=== PATIENT | male | born 1990 | race African-American/Black ===

== ENCOUNTER 2018-11-07 13:42 | Emergency (ER) | payer OTHER ==
[2018-11-07 15:24] LABS: Absolute Lymphocytes (CBC) 1.8 K/uL (0.7-4.9); Absolute Monocytes 0.7 K/uL (0.1-1.3); Absolute Neutrophil 3.9 K/uL (1.8-8.0); Basophils % 0.3 % (0-1.3); Eosinophils % 0.9 % (0-4.4); Hematocrit 42.3 % (39.6-49.0); Lymphocytes % 27.5 % (15.3-44.8); MPV 7.8 fL (7.6-11.3); Monocytes % 10.5 % (3.3-12.3); RBC Red Blood Cell Count 4.74 M/uL (4.33-5.43)
[2018-11-07 15:39] LABS: BUN Blood Urea Nitrogen 10 mg/dL (7-18); Bicarbonate 31 mmol/L (21-32); Glucose Level 95 mg/dL (74-106); Potassium 3.5 mmol/L (3.5-5.1); Sodium Level 142 mmol/L (136-145); Troponin (Emerg Dept Use Only) < 0.02 ng/mL (0.0-0.045)
--- NOTE | 2018-11-07 16:36 | ER ---
Nurse's Notes [facility] Name: Simeon Perez Age: 28 yrs Sex: Male : 1990 Arrival Date: 11/07/2018 Time: 13:43 Bed 17 Private MD: Diagnosis: Chest pain, unspecified;Functional dyspepsia Presentation: 11/07 13:49 Presenting complaint: Patient states: sent by [facility], pt went to see them for sv stomach burning and they sent him here to have the MD look over the EKG. Transition of care: patient was not received from another setting of care. Onset of symptoms was November 07, 2018. Initial Sepsis Screen: Does the patient meet any 2 criteria? No. Patient's initial sepsis screen is negative. Does the patient have a suspected source of infection? No. Patient's initial sepsis screen is negative. Care prior to arrival: None. 13:49 Method Of Arrival: Ambulatory sv 13:49 Acuity: CINTHYA 3 sv 14:15 Risk Assessment: Do you want to hurt yourself or someone else? Patient reports no em desire to harm self or others. Historical: - Allergies: 13:51 No Known Allergies; sv - PMHx: 13:51 None; sv - PSHx: 13:51 None; sv - Immunization history:: Adult Immunizations up to date. - Social history:: Smoking status: Patient/guardian denies using tobacco, Patient/guardian denies using alcohol, street drugs, IV drugs. - Ebola Screening: : No symptoms or risks identified at this time. Screenin:15 Abuse screen: Denies threats or abuse. Nutritional screening: No deficits noted. em Tuberculosis screening: No symptoms or risk factors identified. Fall Risk None identified. Assessment: 14:15 General: Appears in no apparent distress. comfortable, Behavior is calm, cooperative, em Denies fever. Pain: Complains of pain in chest Pain currently is 0 out of 10 on a pain scale. Quality of pain is described as burning, Pain began 1 day ago. Is intermittent. Neuro: Level of Consciousness is awake, alert, obeys commands, Oriented to person, place, time, situation. Cardiovascular: Heart tones S1 S2 present Capillary refill < 3 seconds Patient's skin is warm and dry. Rhythm is sinus bradycardia. Respiratory: Airway is patent Respiratory effort is even, unlabored, Respiratory pattern is regular, symmetrical, Breath sounds are clear bilaterally. Denies cough. GI: Abdomen is flat, Patient currently denies nausea, vomiting. Derm: Skin is intact, is healthy with good turgor, Skin is pink, warm \T\ dry. Musculoskeletal: Capillary refill < 3 seconds, Range of motion: intact in all extremities. 15:00 Reassessment: Patient appears in no apparent distress at this time. Patient and/or em family updated on plan of care and expected duration. Pain level reassessed. Patient is alert, oriented x 3, equal unlabored respirations, skin warm/dry/pink. Patient denies pain at this time. Patient states feeling better. Patient states symptoms have improved. 16:00 Reassessment: Patient appears in no apparent distress at this time. Patient and/or em family updated on plan of care and expected duration. Pain level reassessed. Patient is alert, oriented x 3, equal unlabored respirations, skin warm/dry/pink. Patient denies pain at this time. 16:57 Reassessment: Patient appears in no apparent distress at this time. Patient and/or em family updated on plan of care and expected duration. Pain level reassessed. Patient is alert, oriented x 3, equal unlabored respirations, skin warm/dry/pink. Patient denies pain at this time. Patient states feeling better. Patient states symptoms have improved. Vital Signs: 13:51 BP 114 / 67; Pulse 67; Resp 16; Pulse Ox 97% ; Weight 52.62 kg; Height 5 ft. 7 in. sv (170.18 cm); Pain 0/10; 14:38 BP 117 / 69; Pulse 69; Resp 13; Temp 98.3(O); Pulse Ox 99% on R/A; mh5 15:30 BP 111 / 65; Pulse 56; Resp 18; Temp 98.5(O); Pulse Ox 98% on R/A; mh5 16:58 BP 114 / 60; Pulse 57; Resp 18; Pulse Ox 99% on R/A; Pain 0/10; em 13:51 Body Mass Index 18.17 (52.62 kg, 170.18 cm) sv ED Course: 13:43 Patient arrived in ED. as 13:48 Rigoberto Maldonado MD is Attending Physician. kdr 13:50 Triage completed. sv 13:51 Arm band placed on. sv 14:15 Armen Millard LVN is Primary Nurse. em 14:15 Patient has correct armband on for positive identification. Bed in low position. Call em light in reach. Adult w/ patient. manager proposal on. Pulse ox on. NIBP on. 14:15 EKG done, by ED staff, reviewed by Rigoberto Maldonado MD. [facility] 16:58 No provider procedures requiring assistance completed. Patient did not have IV access em during this emergency room visit. Administered Medications: No medications were administered Outcome: 16:35 Discharge ordered by . kdr 16:58 Discharged to home ambulatory. em 16:58 Condition: good 16:58 Discharge instructions given to patient, Instructed on discharge instructions, follow up and referral plans. medication usage, Demonstrated understanding of instructions, follow-up care, medications, Prescriptions given X 1. 16:59 Patient left the ED. em Signatures: Maribel Jackson RN RN Rigoberto Benedict MD MD kdr Munoz, Edgar, LVN MATERIAL YARD CLERK Courtney Quintero [facility]
--- NOTE | 2018-11-07 16:36 | EDPHYS ---
Physician Documentation [facility] Name: Simeon Perez Age: 28 yrs Sex: Male : 1990 Arrival Date: 11/07/2018 Time: 13:43 Bed 17 Private MD: ED Physician Rigoberto Maldonado HPI: 11/07 15:45 This 28 yrs old Black Male presents to ER via Ambulatory with complaints of Abnormal kdr EKG. 15:45 The patient or guardian reports chest pain that is located primarily in the substernal kdr area, epigastric area. The pain does not radiate. Associated signs and symptoms: Pertinent positives: None. Pertinent negatives: abdominal pain, cough, diaphoresis, dizziness, lightheadedness, nausea, near syncope, palpitations, recent travel, shortness of breath. The chest pain is described as burning. Duration: The patient or guardian reports multiple episodes, that are intermittent, that wax and wane, with no pattern. Modifying factors: The symptoms are alleviated by nothing. the symptoms are aggravated by Worse with carbonated beverages. Severity of pain: At its worst the pain was moderate in the emergency department the pain has resolved. The patient has not experienced similar symptoms in the past. Sent from urgent care after "abnormal " EKG. Historical: - Allergies: 13:51 No Known Allergies; sv - PMHx: 13:51 None; sv - PSHx: 13:51 None; sv - Immunization history:: Adult Immunizations up to date. - Social history:: Smoking status: Patient/guardian denies using tobacco, Patient/guardian denies using alcohol, street drugs, IV drugs. - Ebola Screening: : No symptoms or risks identified at this time. ROS: 15:45 Constitutional: Negative for fever, chills, and weight loss, Eyes: Negative for injury, kdr pain, redness, and discharge, ENT: Negative for injury, pain, and discharge, Neck: Negative for injury, pain, and swelling, Respiratory: Negative for shortness of breath, cough, wheezing, and pleuritic chest pain, Abdomen/GI: Negative for abdominal pain, nausea, vomiting, diarrhea, and constipation, Back: Negative for injury and pain, : Negative for injury, bleeding, discharge, and swelling, MS/Extremity: Negative for injury and deformity, Skin: Negative for injury, rash, and discoloration, Neuro: Negative for headache, weakness, numbness, tingling, and seizure activity. Psych: Negative for depression, anxiety, suicide ideation, homicidal ideation, and hallucinations, Allergy/Immunology: Negative for hives, rash, and allergies, Endocrine: Negative for neck swelling, polydipsia, polyuria, polyphagia, and marked weight changes, Hematologic/Lymphatic: Negative for swollen nodes, abnormal bleeding, and unusual bruising. 15:45 Cardiovascular: Positive for chest pain, Negative for edema, orthopnea, palpitations, paroxysmal nocturnal dyspnea, acute changes. Exam: 15:45 Constitutional: This is a well developed, well nourished patient who is awake, alert, kdr and in no acute distress. Head/Face: Normocephalic, atraumatic. Eyes: Pupils equal round and reactive to light, extra-ocular motions intact. Lids and lashes normal. Conjunctiva and sclera are non-icteric and not injected. Cornea within normal limits. Periorbital areas with no swelling, redness, or edema. Neck: Trachea midline, no thyromegaly or masses palpated, and no cervical lymphadenopathy. Supple, full range of motion without nuchal rigidity, or vertebral point tenderness. No Meningismus. Chest/axilla: Normal chest wall appearance and motion. Nontender with no deformity. No lesions are appreciated. Cardiovascular: Regular rate and rhythm with a normal S1 and S2. No gallops, murmurs, or rubs. Normal PMI, no JVD. No pulse deficits. Respiratory: Lungs have equal breath sounds bilaterally, clear to auscultation and percussion. No rales, rhonchi or wheezes noted. No increased work of breathing, no retractions or nasal flaring. Abdomen/GI: Soft, non-tender, with normal bowel sounds. No distension or tympany. No guarding or rebound. No evidence of tenderness throughout. Back: No spinal tenderness. No costovertebral tenderness. Full range of motion. Skin: Warm, dry with normal turgor. Normal color with no rashes, no lesions, and no evidence of cellulitis. MS/ Extremity: Pulses equal, no cyanosis. Neurovascular intact. Full, normal range of motion. Neuro: Awake and alert, GCS 15, oriented to person, place, time, and situation. Cranial nerves II-XII grossly intact. Motor strength 5/5 in all extremities. Sensory grossly intact. Cerebellar exam normal. Normal gait. Psych: Awake, alert, with orientation to person, place and time. Behavior, mood, and affect are within normal limits. Vital Signs: 13:51 BP 114 / 67; Pulse 67; Resp 16; Pulse Ox 97% ; Weight 52.62 kg; Height 5 ft. 7 in. sv (170.18 cm); Pain 0/10; 14:38 BP 117 / 69; Pulse 69; Resp 13; Temp 98.3(O); Pulse Ox 99% on R/A; mh5 15:30 BP 111 / 65; Pulse 56; Resp 18; Temp 98.5(O); Pulse Ox 98% on R/A; mh5 16:58 BP 114 / 60; Pulse 57; Resp 18; Pulse Ox 99% on R/A; Pain 0/10; em 13:51 Body Mass Index 18.17 (52.62 kg, 170.18 cm) sv MDM: 15:45 Data reviewed: vital signs, nurses notes, lab test result(s). Counseling: I had a kdr detailed discussion with the patient and/or guardian regarding: the historical points, exam findings, and any diagnostic results supporting the discharge/admit diagnosis, lab results, the need for outpatient follow up. 16:35 Patient medically screened. [facility] 11/07 14:56 Order name: CBC with Manual Differential em 11/07 14:56 Order name: Chem 7; Complete Time: 15:43 em 11/07 14:56 Order name: Sed Rate em 11/07 14:56 Order name: Troponin (emerg Dept Use Only); Complete Time: 15:43 em 11/07 14:56 Order name: EKG; Complete Time: 14:58 em Administered Medications: No medications were administered Disposition: 11/07/18 16:35 Discharged to Home. Impression: Chest pain, unspecified, Functional dyspepsia. - Condition is Stable. - Discharge Instructions: Indigestion, Nonspecific Chest Pain, [id number], Gastroesophageal Reflux Disease, Adult, [id number]. - Prescriptions for Pepcid 20 mg Oral Tablet - take 1 tablet by ORAL route once daily; 20 tablet. - Medication Reconciliation Form, Thank You Letter form. - Follow up: Private Physician; When: 2 - 3 days; Reason: If symptoms return, Further diagnostic work-up, Recheck today's complaints, Continuance of care, Re-evaluation by your physician. - Problem is new. - Symptoms are resolved. Signatures: Dispatcher [employer] Maribel Burrell, ARAVIND RN Rigoberto eBnedict MD MD kdr Munoz, Edgar, PRECIPITATION EQUIPMENT TENDER PRECIPITATION EQUIPMENT TENDER em Corrections: (The following items were deleted from the chart) 16:59 16:35 11/07/2018 16:35 Discharged to Home. Impression: Chest pain, unspecified; em Functional dyspepsia. Condition is Stable. Forms are Medication Reconciliation Form, Thank You Letter, Antibiotic Education, Prescription Opioid Use. Follow up: Private Physician; When: 2 - 3 days; Reason: If symptoms return, Further diagnostic work-up, Recheck today's complaints, Continuance of care, Re-evaluation by your physician. Problem is new. Symptoms are resolved. kdr
--- NOTE | 2018-11-07 16:39 | EKG ---
Test Date: 2018-11-07 Test Time: 14:12:20 Campus Rep: ZACHARY MEASUREMENT RESULTS: Intervals: Rate: 58 MD: 160 QRSD: 92 QT: 400 QTc: 392 [place]: P: 78 MD: 160 QRS: 83 T: 63 INTERPRETIVE STATEMENTS: Sinus bradycardia Minimal voltage criteria for LVH, may be normal variant Borderline ECG No previous ECG available for comparison Electronically Signed On 11-07-18 16:39:26 CDT by Cam Royal
[2018-11-07 17:36] VITALS: TEMP 98.5
[2018-11-07 17:38] VITALS: BP 114/60; O2SAT 99
[2018-11-07 17:52] LABS: Blood Morphology Comment NOT SEEN (NOT SEEN); Platelet Estimate ADEQ
== END 2018-11-07 16:59 | disposition home or self-care (01) ==
LOC: ER 13:42
DX: K30 Functional dyspepsia (principal); R07.9 Chest pain, unspecified
CPT/HCPCS: 36415; 80048; 84484; 85025; 85652; 93005; 99284

== ENCOUNTER 2022-01-10 10:38 | Emergency (ER) | payer SELFPAY ==
--- NOTE | 2022-01-10 13:23 | ER ---
Nurse's Notes [facility] Name: Simeon Perez Age: 31 yrs Sex: Male : 1990 Arrival Date: 01/10/2022 Time: 10:42 Bed 11 Private MD: Diagnosis: SARS-associated coronavirus as the cause of diseases classified elsewhere Presentation: 01/10 11:01 Chief complaint: Patient states: "I had a headache that started a week ago. I think I ss have COVID. I got it from my girl." Pt reports that he took a home test last night and it was positive, but work wants a confirmation. Denies symptoms at this time. Coronavirus screen: Client reports previous positive COVID test result. Ebola Screen: Patient denies exposure to infectious person. Patient denies travel to an Ebola-affected area in the 21 days before illness onset. Initial Sepsis Screen: Does the patient meet any 2 criteria? No. Patient's initial sepsis screen is negative. Does the patient have a suspected source of infection? No. Patient's initial sepsis screen is negative. Risk Assessment: Do you want to hurt yourself or someone else? Patient reports no desire to harm self or others. Onset of symptoms was January 04, 2022. 11:01 Method Of Arrival: Ambulatory ss 11:01 Acuity: CINTHYA 5 ss Historical: - Allergies: 11:03 No Known Allergies; ss - Home Meds: 11:03 None [Active]; ss - PMHx: 11:03 None; ss - PSHx: 11:03 None; ss - Immunization history:: Client reports receiving the 2nd dose of the Covid vaccine. - Social history:: Smoking status: Patient denies any tobacco usage or history of. Screenin:42 Abuse screen: Denies threats or abuse. Denies injuries from another. Nutritional ld1 screening: No deficits noted. Tuberculosis screening: No symptoms or risk factors identified. Fall Risk None identified. Assessment: 13:42 Reassessment: Patient is alert, oriented x 3, equal unlabored respirations, skin ld1 warm/dry/pink. See triage assessmnet Patient denies pain at this time. Vital Signs: 11:01 BP 122 / 91; Pulse 72; Resp 14; Temp 98.2(TE); Pulse Ox 100% on R/A; Weight 56.7 kg; Height 5 ft. 7 in. (170.18 cm); Pain 0/10; 13:42 Pulse 81; Resp 16; Pulse Ox 100% on R/A; Pain 0/10; ld1 11:01 Body Mass Index 19.58 (56.70 kg, 170.18 cm) ED Course: 10:42 Patient arrived in ED. mr 11:03 Triage completed. ss 11:03 Arm band placed on right wrist. ss 11:07 Rigoberto Maldonado MD is Attending Physician. kdr 13:17 Martha Guzman, ARAVIND is Primary Nurse. ss 13:42 Patient has correct armband on for positive identification. Bed in low position. Call ld1 light in reach. Side rails up X2. Pulse ox on. NIBP on. Door closed. Noise minimized. 13:42 No provider procedures requiring assistance completed. Patient did not have IV access ld1 during this emergency room visit. Administered Medications: No medications were administered Medication: 13:42 VIS not applicable for this client. ld1 Outcome: 13:22 Discharge ordered by . kdr 13:42 Discharged to home ambulatory. ld1 13:42 Condition: stable 13:42 Discharge instructions given to patient, Instructed on discharge instructions, follow up and referral plans. Demonstrated understanding of instructions, follow-up care. 13:43 Patient left the ED. ld1 Signatures: Rigoberto Maldonado MD MD kdr Rivera, Mary mr Martha Guzman, ARAVIND RN Mary Ann Harper RN RN ld1
--- NOTE | 2022-01-10 13:23 | EDPHYS ---
Physician Documentation [facility] Name: Simeon Perez Age: 31 yrs Sex: Male : 1990 Arrival Date: 01/10/2022 Time: 10:42 Bed 11 Private MD: ED Physician Rigoberto Maldonado HPI: 01/10 13:18 This 31 yrs old Black Male presents to ER via Ambulatory with complaints of Cough, kdr Covid Test. 13:18 The patient or guardian reports cough, that is intermittent, described as mild. Onset: kdr The symptoms/episode began/occurred gradually, 3 day(s) ago. Severity of symptoms: At their worst the symptoms were mild, in the emergency department the symptoms are unchanged. Modifying factors: The symptoms are alleviated by nothing, the symptoms are aggravated by nothing. Associated signs and symptoms: Pertinent positives: fever, rhinorrhea, sore throat. The patient has not experienced similar symptoms in the past. The patient has not recently seen a physician. Historical: - Allergies: 11:03 No Known Allergies; ss - Home Meds: 11:03 None [Active]; ss - PMHx: 11:03 None; ss - PSHx: 11:03 None; ss - Immunization history:: Client reports receiving the 2nd dose of the Covid vaccine. - Social history:: Smoking status: Patient denies any tobacco usage or history of. ROS: 13:18 Constitutional: Negative for fever, chills, and weight loss, Eyes: Negative for injury, kdr pain, redness, and discharge, Neck: Negative for injury, pain, and swelling, Cardiovascular: Negative for chest pain, palpitations, and edema, Respiratory: Negative for shortness of breath, cough, wheezing, and pleuritic chest pain. 13:18 ENT: Positive for dental pain. Exam: 13:18 Constitutional: This is a well developed, well nourished patient who is awake, alert, kdr and in no acute distress. Head/Face: Normocephalic, atraumatic. Eyes: Pupils equal round and reactive to light, extra-ocular motions intact. Lids and lashes normal. Conjunctiva and sclera are non-icteric and not injected. Cornea within normal limits. Periorbital areas with no swelling, redness, or edema. Neck: Trachea midline, no thyromegaly or masses palpated, and no cervical lymphadenopathy. Supple, full range of motion without nuchal rigidity, or vertebral point tenderness. No Meningismus. Chest/axilla: Normal chest wall appearance and motion. Nontender with no deformity. No lesions are appreciated. Cardiovascular: Regular rate and rhythm with a normal S1 and S2. No gallops, murmurs, or rubs. Normal PMI, no JVD. No pulse deficits. Respiratory: Lungs have equal breath sounds bilaterally, clear to auscultation and percussion. No rales, rhonchi or wheezes noted. No increased work of breathing, no retractions or nasal flaring. Abdomen/GI: Soft, non-tender, with normal bowel sounds. No distension or tympany. No guarding or rebound. No evidence of tenderness throughout. Back: No spinal tenderness. No costovertebral tenderness. Full range of motion. Skin: Warm, dry with normal turgor. Normal color with no rashes, no lesions, and no evidence of cellulitis. MS/ Extremity: Pulses equal, no cyanosis. Neurovascular intact. Full, normal range of motion. Neuro: Awake and alert, GCS 15, oriented to person, place, time, and situation. Cranial nerves II-XII grossly intact. Motor strength 5/5 in all extremities. Sensory grossly intact. Cerebellar exam normal. Normal gait. Psych: Awake, alert, with orientation to person, place and time. Behavior, mood, and affect are within normal limits. Vital Signs: 11:01 BP 122 / 91; Pulse 72; Resp 14; Temp 98.2(TE); Pulse Ox 100% on R/A; Weight 56.7 kg; ss Height 5 ft. 7 in. (170.18 cm); Pain 0/10; 13:42 Pulse 81; Resp 16; Pulse Ox 100% on R/A; Pain 0/10; ld1 11:01 Body Mass Index 19.58 (56.70 kg, 170.18 cm) ss MDM: 13:18 Data reviewed: vital signs, nurses notes, lab test result(s). ED course: The patient kdr was stable and completely nontoxic in the ED. 13:22 Patient medically screened. kdr 01/10 11:07 Order name: COVID-19 SARS RT PCR (Document "Date of Onset" if Symptomatic) kdr 01/10 11:07 Order name: Flu; Complete Time: 12:39 kdr Administered Medications: No medications were administered Disposition Summary: 01/10/22 13:22 Discharge Ordered Location: Home kdr Problem: new kdr Symptoms: have improved kdr Condition: Stable kdr Diagnosis - SARS-associated coronavirus as the cause of diseases classified elsewhere kdr Followup: kdr - With: Private Physician - When: 2 - 3 days - Reason: If symptoms return, Further diagnostic work-up, Recheck today's complaints, Continuance of care, Re-evaluation by your physician Discharge Instructions: - Discharge Summary Sheet kdr - COVID-19 kdr - 10 Things You Can Do to Manage Your COVID-19 Symptoms at Home - [facility] kdr - Viral Illness, Adult kdr - COVID-19: Quarantine vs. Isolation - [facility] kdr - Prevent the Spread of COVID-19 if You Are Sick - [facility] kdr Forms: - Medication Reconciliation Form kdr - Thank You Letter kdr Signatures: Dispatcher [employer] Rigoberto Lloyd MD MD kdr Martha Guzman RN RN ss
[2022-01-10 13:58] VITALS: BP 122/91; TEMP 98.2; O2SAT 100
== END 2022-01-10 13:43 | disposition home or self-care (01) ==
LOC: ER 10:38
DX: U07.1 COVID-19 (principal)
CPT/HCPCS: 87804; 99283; U0003